=== PATIENT | female | born 1935 | race Caucasian/White ===

== ENCOUNTER 2019-06-13 10:46 | Outpatient (CLI) | payer MEDICARE, MEDICAID, SELFPAY ==
--- NOTE | 2019-06-13 11:13 | XR_ITS ---
WS: [id number] CHEST 2 VIEWS HISTORY: COUGH, DYSPNEA COMPARISON: 2 [id number] Lungs: Hyperinflated lungs with scattered granulomata. No pneumonia. Normal pulmonary vasculature. Cardiac size: Mildly enlarged cardiac silhouette. Mediastinum/Aorta: Mild atherosclerosis aorta. Bones: Osteopenia. XR/XR chest 2V* [id number] IMPRESSION: 1. No pneumonia. 2. Prior granulomatous disease and prior CABG. 3. Partially calcified aorta.
== END 2019-06-13 10:47 | disposition home or self-care (01) ==
LOC: RADWPI 10:54
PROVIDERS: Family Provider Internal Medicine; PCP Internal Medicine; Visit Provider Nurse Practitioner Family
DX: I70.0 Atherosclerosis of aorta (principal); R05 Cough; R06.00 Dyspnea, unspecified; Z95.1 Presence of aortocoronary bypass graft
CPT/HCPCS: 71046

== ENCOUNTER → 2019-08-31 17:46 | Outpatient (BNVA) | payer MEDICARE, MEDICAID, SELFPAY | PROVIDERS: Family Provider Internal Medicine; PCP Internal Medicine; Visit Provider Nurse Practitioner | DX: R50.9 Fever, unspecified (principal) | CPT/HCPCS: 87400; 87635 ==

== ENCOUNTER → 2019-09-07 16:26 | Outpatient (BNVA) | payer MEDICARE, MEDICAID, SELFPAY | PROVIDERS: Family Provider Internal Medicine; PCP Internal Medicine; Visit Provider Nurse Practitioner | DX: R50.9 Fever, unspecified (principal); J43.9 Emphysema, unspecified | CPT/HCPCS: 71046; 80053; 81003; 85025 ==

== ENCOUNTER → 2019-09-12 10:28 | Outpatient (BNVA) | payer MEDICARE, MEDICAID, SELFPAY | PROVIDERS: Family Provider Internal Medicine; PCP Internal Medicine; Visit Provider Nurse Practitioner | DX: D72.829 Elevated white blood cell count, unspecified (principal); J06.9 Acute upper respiratory infection, unspecified | CPT/HCPCS: 81000; 85025 ==

== ENCOUNTER → 2019-09-28 10:54 | Outpatient (BNVA) | payer MEDICARE, MEDICAID, SELFPAY | PROVIDERS: Family Provider Internal Medicine; PCP Internal Medicine; Visit Provider Nurse Practitioner | DX: I10 Essential (primary) hypertension (principal); E03.9 Hypothyroidism, unspecified; D72.829 Elevated white blood cell count, unspecified; J43.9 Emphysema, unspecified; J30.1 Allergic rhinitis due to pollen; N39.46 Mixed incontinence; E78.2 Mixed hyperlipidemia; K21.9 Gastro-esophageal reflux disease without esophagitis | CPT/HCPCS: 80053; 81000; 82607; 84443; 85025 ==

== ENCOUNTER → 2019-10-25 08:00 | Outpatient (BNVA) | payer MEDICARE, MEDICAID, SELFPAY | PROVIDERS: Family Provider Internal Medicine; PCP Nurse Practitioner; Visit Provider Internal Medicine Cardiovascular Disease | DX: E78.2 Mixed hyperlipidemia (principal) | CPT/HCPCS: 80061 ==

== ENCOUNTER → 2019-11-01 10:55 | Outpatient (BNVA) | payer MEDICARE, MEDICAID, SELFPAY | PROVIDERS: Family Provider Internal Medicine; PCP Nurse Practitioner; Visit Provider Nurse Practitioner | DX: M54.2 Cervicalgia (principal); E53.8 Deficiency of other specified B group vitamins; M47.812 Spondylosis without myelopathy or radiculopathy, cervical region; M50.321 Other cervical disc degeneration at C4-C5 level; M50.31 Other cervical disc degeneration, high cervical region; M50.322 Other cervical disc degeneration at C5-C6 level; M50.323 Other cervical disc degeneration at C6-C7 level | CPT/HCPCS: 72040 ==

== ENCOUNTER 2019-11-22 09:27 | Outpatient (CLI) | payer MEDICARE, MEDICAID, SELFPAY ==
--- NOTE | 2019-11-22 10:15 | USCV_ITS ---
Venita Pittman Age: 83 Gender: F : 1935 Exam Date: 11/22/2019 09:57 Ordering Phys: Lopez Simmons MD ([email or web address]) Technologist: Lina Green [place] [facility] [place]: [place] Risk Factors: Previous Vascular Surgery: Right Brachial BP: / Left Brachial BP: / Right Left Velocity (cm/s) Spectral Plaque Velocity (cm/s) Spectral Plaque Syst/Diast Broadening Syst/Diast Broadening 92.60/ 11.00 Prox CCA 64.30 / 7.30 76.10/ 14.30 Mid CCA 59.90 / 10.20 59.50/ 11.00 Distal CCA 51.90 / 6.70 135.60/18.70 Prox ICA 49.30 / 13.90 119.10/13.20 Mid ICA 77.20 / 15.80 94.80/ 18.70 Distal ICA 60.40 / 18.60 138.90 ECA 99.20 1.78 ICA/CCA 1.29 Not Vertebral Antegrade Visualized / cm/s 40.90/ 10.20 cm/s Bi Subclavian Bi 65.70 95.70 FINDINGS Moderate heterogeneous plaques are noted of the right bifurcation and proximal internal carotid artery. Minimal plaques are noted of the left bifurcation and internal carotid artery. Intimal thickening in the common carotid arteries bilaterally. Right vertebral artery was not visualized. Antegrade flow was noted in the left vertebral artery. Normal Doppler flow velocities in the external carotid and subclavian arteries CONCLUSIONS Moderate heterogeneous plaques are noted at the right bifurcation and proximal internal carotid arterywith velocity elevation consistent with 50-79% stenosis. Minimal plaques are noted at the left bifurcation and internal carotid artery. Compared to the study from 11/08/2018, there may not be a significant change Dr Lopez Simmons MD [facility] (Electronically Signed) Final Date: 23 November 2019 09:16 S
== END 2019-11-22 09:28 | disposition home or self-care (01) ==
LOC: RAD 09:27
PROVIDERS: PCP Nurse Practitioner; Visit Provider Internal Medicine Cardiovascular Disease
DX: I65.21 Occlusion and stenosis of right carotid artery (principal)
CPT/HCPCS: 93880

== ENCOUNTER → 2019-12-21 12:02 | Outpatient (BNVA) | payer MEDICARE, MEDICAID, SELFPAY | PROVIDERS: PCP Nurse Practitioner; Visit Provider Nurse Practitioner | DX: E53.8 Deficiency of other specified B group vitamins (principal); G47.00 Insomnia, unspecified; M50.30 Other cervical disc degeneration, unspecified cervical region | CPT/HCPCS: 80053; 82607 ==

== ENCOUNTER 2020-01-03 06:00 | Outpatient (RCR) | payer MEDICARE, MEDICAID, SELFPAY | END 2020-01-22 23:59 | disposition home or self-care (01) | LOC: APT 06:00 | PROVIDERS: PCP Nurse Practitioner; Referring Provider Nurse Practitioner; Visit Provider Nurse Practitioner | DX: M50.30 Other cervical disc degeneration, unspecified cervical region (principal) | CPT/HCPCS: 97110; 97163 ==

== ENCOUNTER 2020-01-23 06:00 | Outpatient (RCR) | payer MEDICARE, MEDICAID, SELFPAY | END 2020-02-21 23:59 | disposition home or self-care (01) | LOC: APT 06:00 | PROVIDERS: PCP Nurse Practitioner; Referring Provider Nurse Practitioner; Visit Provider Nurse Practitioner | DX: M50.30 Other cervical disc degeneration, unspecified cervical region (principal) | CPT/HCPCS: 97110; 97140; 97164 ==

== ENCOUNTER 2020-02-22 06:00 | Outpatient (RCR) | payer MEDICARE, MEDICAID, SELFPAY | END 2020-03-23 23:59 | disposition home or self-care (01) | LOC: APT 06:00 | PROVIDERS: PCP Nurse Practitioner; Referring Provider Nurse Practitioner; Visit Provider Nurse Practitioner | DX: M50.30 Other cervical disc degeneration, unspecified cervical region (principal) | CPT/HCPCS: 97110; 97140; 97530 ==

== ENCOUNTER → 2020-04-02 11:09 | Outpatient (BNVA) | payer MEDICARE, MEDICAID, SELFPAY | PROVIDERS: PCP Nurse Practitioner; Visit Provider Nurse Practitioner | DX: E53.8 Deficiency of other specified B group vitamins (principal); E03.9 Hypothyroidism, unspecified; E78.2 Mixed hyperlipidemia | CPT/HCPCS: 80053; 80061; 82607; 84443; 85025 ==

== ENCOUNTER → 2020-09-24 09:19 | Outpatient (BNVA) | payer MEDICARE, MEDICAID, SELFPAY | PROVIDERS: PCP Nurse Practitioner; Visit Provider Nurse Practitioner | DX: E53.8 Deficiency of other specified B group vitamins (principal); E03.9 Hypothyroidism, unspecified; I10 Essential (primary) hypertension; E78.2 Mixed hyperlipidemia | CPT/HCPCS: 80053; 80061; 82607; 84443; 85025 ==

== ENCOUNTER → 2020-09-26 11:32 | Outpatient (BNVA) | payer MEDICARE, MEDICAID, SELFPAY | PROVIDERS: PCP Nurse Practitioner; Visit Provider Nurse Practitioner | DX: J43.9 Emphysema, unspecified (principal); I10 Essential (primary) hypertension; E03.9 Hypothyroidism, unspecified; E53.8 Deficiency of other specified B group vitamins; K21.9 Gastro-esophageal reflux disease without esophagitis; M50.30 Other cervical disc degeneration, unspecified cervical region; J30.1 Allergic rhinitis due to pollen; N39.46 Mixed incontinence; E78.2 Mixed hyperlipidemia; E55.9 Vitamin D deficiency, unspecified; R73.9 Hyperglycemia, unspecified | CPT/HCPCS: 82306; 83036 ==

== ENCOUNTER → 2020-10-02 14:41 | Outpatient (BNVA) | payer MEDICARE, MEDICAID, SELFPAY | PROVIDERS: PCP Nurse Practitioner; Visit Provider Internal Medicine Cardiovascular Disease | DX: I65.23 Occlusion and stenosis of bilateral carotid arteries (principal); E78.2 Mixed hyperlipidemia; R07.9 Chest pain, unspecified; I25.118 Atherosclerotic heart disease of native coronary artery with other forms of angina pectoris; R06.02 Shortness of breath; I77.9 Disorder of arteries and arterioles, unspecified | CPT/HCPCS: 80048; 83880 ==

== ENCOUNTER 2020-10-08 14:24 | Outpatient (CLI) | payer MEDICARE, MEDICAID, SELFPAY ==
--- NOTE | 2020-10-08 14:31 | XRR_ITS ---
PROCEDURE INFORMATION: Exam: XR Chest Exam date and time: 10/08/2020 2:31 PM Age: 84 years old Clinical indication: Condition or disease; Lung condition and disease; Emphysema; Type not specified; Cough; Prior surgery; Surgery type: Bypass x 2; Additional info: J43.9 - emphysema, unspecified TECHNIQUE: Imaging protocol: XR of the chest. Views: Frontal and lateral upright, 2 views. COMPARISON: CR XR chest 2V* [id number] 09/07/2019 4:26 PM FINDINGS: Tubes, catheters and devices: The patient is status post median sternotomy with intact sternal cerclage wires. Lungs: Stable left lateral basilar infiltrate. Stable medial right basilar pulmonary subsegmental/partial atelectasis. The pulmonary vasculature is normal. Pleural space: No definite pleural effusion. No pneumothorax. Heart/Mediastinum: The heart is normal in size and contour. Mediastinum: Stable. Vasculature: Moderate aortic arch atherosclerotic calcification without ectasia. Bones/joints: Stable. XR/XR chest 2V* [id number] IMPRESSION: 1. Stable left lateral basilar infiltrate. Pneumonitis is difficult to exclude. Clinical correlation is recommended. 2. Stable medial right basilar pulmonary subsegmental/partial atelectasis.
== END 2020-10-08 14:25 | disposition home or self-care (01) ==
PROVIDERS: PCP Nurse Practitioner; Visit Provider Nurse Practitioner
DX: J43.9 Emphysema, unspecified (principal); R91.8 Other nonspecific abnormal finding of lung field; J98.11 Atelectasis
CPT/HCPCS: 71046; 85025

== ENCOUNTER → 2020-10-28 12:06 | Outpatient (BNVA) | payer MEDICARE, MEDICAID, SELFPAY | PROVIDERS: PCP Nurse Practitioner; Visit Provider Nurse Practitioner | DX: I25.118 Atherosclerotic heart disease of native coronary artery with other forms of angina pectoris (principal); I10 Essential (primary) hypertension; J43.9 Emphysema, unspecified | CPT/HCPCS: 85025 ==

== ENCOUNTER 2020-11-05 09:42 | Outpatient (CLI) | payer MEDICARE, MEDICAID, SELFPAY ==
[2020-11-05 10:15] LABS: Basophils # 0.4 10^3/uL (0.0-0.1); Basophils % 3.5 %; Eosinophils # 0.6 10^3/uL (0.0-0.8); Eosinophils % 5.7 %; Hematocrit 46.7 % (37.0-47.0); Hemoglobin 14.9 g/dL (11.5-15.3); Lymphocytes # 1.9 10^3/uL (0.8-4.8); Lymphocytes % 17.2 %; Mean Corpuscular HGB Conc 31.9 g/dL (30.0-36.0); Mean Corpuscular Hemoglobin 30.1 pg (28.0-34.0); Mean Corpuscular Volume 94.3 fL (81-99); Monocytes % 9.2 %; Neutrophils # 7.18 10^3/uL (1.8-7.7); Neutrophils % 63.8 %; Nucleated Red Blood Cells % 0 %; Platelet Count 264 10^3/cmm (130-400); Red Blood Count 4.95 10^6/uL (4.1-5.3); Red Cell Distribution Width 13.1 % (12.1-15.1); White Blood Count 11.3 10^3/uL (4.0-10.0)
--- NOTE | 2020-11-07 09:02 | ONC CON_ITS ---
Dr. Killian New Patient Note Patient: Venita Pittman Unit #: [id number]: 1935 Dicatated By: Judah Killian M.D.Date of Visit: Nov 05, 2020 Onc MED New Patient/Consult Referring Physician: Magalie Castillo History of Present Illness: Ms. Ventia Pittman, is a 84-year-old female with a history of increased white blood cells since April 2020, as per patient her white blood count never got below 12,000. As per patient she has history of walking pneumonia about a year ago at that time she was treated with antibiotics and steroids for 10 days and responded well, she has history of chronic arthritis which is being treated with Mobic, patient also has history of COPD asthma for which she takes Breo, which is a combination of fluticasone and Vilanterol inhaler, Denies [id number] steroid-containing medication or regular use of steroids or herbs Patient denies smoking or secondhand smoking denies any alcohol use. Patient denies any night sweats, denies any weight loss, denies any abdominal fullness, denies any peripheral lymphadenopathy Past Medical History: Ms. Pittman's medical history consists of atherosclerosis of coronary artery, atherosclerotic femoro-popliteal artery disease, chronic obstructive pulmonary disease, coronary artery disease, emphysema, gastroesophageal reflux disease, heart murmur, hyperlipidemia, hypertension, and hypothyroidism. Past Surgical History: Ms. Pittman's surgical/procedural history consists of biliary stent, coronary artery bypass, Left rotator cuff December 1998, Right rotator cuff january 2007, covid vaccine #2 moderna in 2020, covid vaccine #1 moderna in 2020, and colonoscopy in 2012. Medications: All Day Allergy 1 Tablet (of 10 mg) Oral daily, amLODIPine-Olmesartan 1 Tablet (of 5-20 mg) Oral daily, Aspirin 81 1 Tablet (of 81 mg) Tablet, enteric coated Oral daily, B-12 1 Tablet (of 1000 mcg) Oral daily, Breo Ellipta Aerosol Powder, Breath Activated Inhalation, [facility] Fish Oil 1 Capsule (of 1000 mg) Oral daily, [facility] Vitamin E 1 Capsule (of 400 Units) Oral daily, Esomeprazole Magnesium 1 Capsule (of 40 mg) Capsule Delayed Release Oral daily, Levothyroxine Sodium 1 Tablet (of 100 mcg) Oral daily, Magnesium 2 Tablet (of 250 mg) Oral daily, Meloxicam 1 Tablet (of 7.5 mg) Oral daily, Metoprolol Tartrate 1 Tablet (of 100 mg) Oral daily, Montelukast Sodium 1 Tablet (of 10 mg) Oral daily, Oxybutynin Chloride ER 1 Tablet (of 10 mg) Tablet SR 24 HR Oral daily, Potassium Chloride ER 2 Tablet (of 10 meq) Tablet, controlled release Oral daily, PreserVision AREDS 1 Capsule Oral daily, Rosuvastatin Calcium 1 Tablet (of 10 mg) Oral daily Allergies: No Known Allergies. Social History: Ms. Pittman is . Ms. Pittman no longer smokes. She is a former drinker. Family History: Ms. Pittman's mother at age 90: coronary artery disease, and stroke, and type II diabetes. Ms. Pittman's father at age 84. Ms. Pittman has 1 brother who is : cancer. She has 1 sister who is alive. Review Of Symptoms: Review of Systems is not available for this patient. Vital Signs: Most recent vitals are not available for this patient. Performance Status: 0 - Fully active, able to carry on all predisease activities without restrictions. (ECOG) Physical Examination: ENMT - No mouth sores, no thrush, no jaundice no lymphadenopathy, Respiratory - Lungs are clear to auscultation, Cardiovascular - Regular rate and rhythm of heart, Abdomen - Soft, bowel sounds present, Extremities - No visible edema. Lab/Imaging: Most recent lab results are not available for this patient. Impression: Isolated mild leukocytosis, etiology unclear could be due to chronic steroid-containing inhalers use, stress-related, considering her age underlying myeloproliferative disorder cannot be ruled out but less likely, or due to chronic inflammatory process like arthritis, History of arthritis, COPD, history of walking pneumonia Hypothyroidism Plan: Discussed with patient regarding her labs white blood count 11.3, normal being 4-10,000, hemoglobin 14.9 hematocrit 46.7 platelets 264,000 with normal differential Clinically, patient doing well with no signs symptoms history of acute or chronic infection, follow-up labs shows improvement in her mild isolated Leukocytosis ,, at this point ,we will monitor and she will return to clinic in 1 month with CBC with differential, if there is a worsening of mild isolated Leukocytosis, will consider holding off steroid containing inhaler, if there is no improvement, will consider whole blood flow cytometry to rule out myeloproliferative disorder Signed By: Judah Killian M.D. <<Signature on File>>
== END 2020-11-05 09:43 | disposition home or self-care (01) ==
PROVIDERS: PCP Nurse Practitioner; Visit Provider Internal Medicine Hematology & Oncology
DX: D72.829 Elevated white blood cell count, unspecified (principal); J44.9 Chronic obstructive pulmonary disease, unspecified; E03.8 Other specified hypothyroidism; M19.90 Unspecified osteoarthritis, unspecified site
CPT/HCPCS: 85025; 99204

== ENCOUNTER 2020-11-05 14:31 | Outpatient (CLI) | payer MEDICARE, MEDICAID, SELFPAY ==
--- NOTE | 2020-11-05 15:00 | USCV_ITS ---
Venita Pittman Age: 84 Gender: F : 1935 Exam Date: 11/05/2020 14:58 Ordering Phys: Lopez Simmons MD ([email or web address]) Technologist: CHANDRA Exam Location: [facility] [place] Indication: ART DISORDER Risk Factors: Previous Vascular Surgery: Right Brachial BP: / Left Brachial BP: / Right Left Velocity (cm/s) Spectral Plaque Velocity (cm/s) Spectral Plaque Syst/Diast Broadening Syst/Diast Broadening 106.90/9.90 Prox CCA 110.30/ 10.40 73.00/ 8.50 Mid CCA 71.80 / 9.70 80.80/ 10.10 Distal CCA 66.90 / 8.90 118.50/13.90 Prox ICA 81.20 / 11.10 150.10/14.90 Mid ICA 87.30 / 15.70 89.50/ 15.60 Distal ICA 98.90 / 26.40 132.80 ECA 146.40 1.40 ICA/CCA 0.90 Antegrade Vertebral Antegrade 30.10/ 7.30 cm/s 47.90/ 9.40 cm/s Bi Subclavian Tri 258.0 133.3 0 0 FINDINGS Moderate heterogeneous plaques at the right bifurcation and internal carotid artery. Mild to moderate heterogeneous plaques at the left bifurcation and internal carotid artery Antegrade flow in the vertebral arteries bilaterally. Elevated Doppler velocities in the right subclavian artery CONCLUSIONS Moderate heterogeneous plaques at the right bifurcation and internal carotid artery with Doppler features consistent with 50 to 69% stenosis. Mild to moderate heterogeneous plaques at the left bifurcation and internal carotid artery with the Doppler features consistent with less than 50% stenosis Elevated Doppler velocity in the right subclavian artery, suggestive of greater than 60% stenosis Compared to the study from 11/22/2019, the elevated velocity in the right subclavian artery suggesting stenosis, appears to be new Dr Lopez Simmons MD [facility] (Electronically Signed) Final Date: 05 November 2020 19:12 S
== END 2020-11-05 14:32 | disposition home or self-care (01) ==
LOC: RAD 14:35
PROVIDERS: PCP Nurse Practitioner; Visit Provider Internal Medicine Cardiovascular Disease
DX: I77.9 Disorder of arteries and arterioles, unspecified (principal); I65.23 Occlusion and stenosis of bilateral carotid arteries
CPT/HCPCS: 93880

== ENCOUNTER → 2020-11-21 10:17 | Outpatient (BNVA) | payer MEDICARE, MEDICAID, SELFPAY | PROVIDERS: PCP Nurse Practitioner; Visit Provider Nurse Practitioner | DX: E03.9 Hypothyroidism, unspecified (principal); E53.8 Deficiency of other specified B group vitamins; I10 Essential (primary) hypertension | CPT/HCPCS: 80048; 82607; 84443 ==

== ENCOUNTER 2020-12-18 11:46 | Outpatient (CLI) | payer MEDICARE, MEDICAID, SELFPAY ==
[2020-12-18 12:26] LABS: Basophils # 0.5 10^3/uL (0.0-0.1); Basophils % 3.7 %; Eosinophils # 0.5 10^3/uL (0.0-0.8); Eosinophils % 3.7 %; Hematocrit 43.2 % (37.0-47.0); Lymphocytes # 2.8 10^3/uL (0.8-4.8); Lymphocytes % 21.6 %; Mean Corpuscular HGB Conc 32.4 g/dL (30.0-36.0); Mean Corpuscular Hemoglobin 30.4 pg (28.0-34.0); Mean Corpuscular Volume 93.7 fL (81-99); Monocytes # 1.4 10^3/uL (0.2-0.9); Monocytes % 10.5 %; Neutrophils # 7.88 10^3/uL (1.8-7.7); Nucleated Red Blood Cells % 0 %; Platelet Count 297 10^3/cmm (130-400); Red Blood Count 4.61 10^6/uL (4.1-5.3); Red Cell Distribution Width 12.8 % (12.1-15.1); White Blood Count 13.1 10^3/uL (4.0-10.0)
== END 2020-12-18 11:47 | disposition home or self-care (01) ==
LOC: ONCMED 11:52
PROVIDERS: PCP Nurse Practitioner; Visit Provider Internal Medicine Hematology & Oncology
DX: D72.829 Elevated white blood cell count, unspecified (principal)
CPT/HCPCS: 36415; 85025

== ENCOUNTER 2020-12-19 06:16 | Outpatient (CLI) | payer MEDICARE, MEDICAID, SELFPAY ==
--- NOTE | 2020-12-19 13:49 | ONC FU_ITS ---
Dr. Killian follow up note Patient: Venita Pittman Unit #: [id number]: 1935 Dicatated By: Judah Killian M.D.Date of Visit:Dec 19, 2020 Onc Med Follow-up/Prog Note History of Present Illness: Ms. Venita Pittman, is a 85-year-old female with a history of increased white blood cells since April 2020, as per patient her white blood count never got below 12,000. As per patient she has history of walking pneumonia about a year ago at that time she was treated with antibiotics and steroids for 10 days and responded well, she has history of chronic arthritis which is being treated with Mobic, patient also has history of COPD asthma for which she takes Breo, which is a combination of fluticasone and Vilanterol inhaler, Denies [id number] steroid-containing medication or regular use of steroids or herbs Patient denies smoking or secondhand smoking denies any alcohol use. Patient denies any night sweats, denies any weight loss, denies any abdominal fullness, denies any peripheral lymphadenopathy Came for follow-up, denies any specific complaints, no fever chills, no nausea or vomiting, no diarrhea constipation, no abdominal fullness, no peripheral lymphadenopathy, no dysuria or hematuria, no sinus problem Medications: All Day Allergy 1 Tablet (of 10 mg) Oral daily, amLODIPine-Olmesartan 1 Tablet (of 5-20 mg) Oral daily, Aspirin 81 1 Tablet (of 81 mg) Tablet, enteric coated Oral daily, B-12 1 Tablet (of 1000 mcg) Oral daily, Breo Ellipta Aerosol Powder, Breath Activated Inhalation, [facility] Fish Oil 1 Capsule (of 1000 mg) Oral daily, [facility] Vitamin E 1 Capsule (of 400 Units) Oral daily, Esomeprazole Magnesium 1 Capsule (of 40 mg) Capsule Delayed Release Oral daily, Levothyroxine Sodium 1 Tablet (of 100 mcg) Oral daily, Magnesium 2 Tablet (of 250 mg) Oral daily, Meloxicam 1 Tablet (of 7.5 mg) Oral daily, Metoprolol Tartrate 1 Tablet (of 50 mg) Oral b.i.d., Montelukast Sodium 1 Tablet (of 10 mg) Oral daily, Oxybutynin Chloride ER 1 Tablet (of 10 mg) Tablet SR 24 HR Oral daily, Potassium Chloride ER 2 Tablet (of 10 meq) Tablet, controlled release Oral daily, PreserVision AREDS 1 Capsule Oral daily, Rosuvastatin Calcium 1 Tablet (of 10 mg) Oral daily Allergies: No Known Allergies. Review of Systems: Review of Systems is not available for this patient. Vital Signs: Performed on Dec 19, 2020 12:43 Weight - 140.2 lbs (HIGH) BSA - 0.00 sq.m BMI - 0.00 Temperature - 98.4 F Pulse - 72 /min Respiration - 18 /min BP - 100/60 mm(hg) O2 Sat - 96 % Pain - 3 Fatigue - 7 Performance Status: 0 - Fully active, able to carry on all predisease activities without restrictions. (ECOG) Physical Examination: ENMT - Sinuses are nontender. No oral exudateNo mouth sores, no thrush, no jaundice, no peripheral lymphadenopathys, ulcers, masses, thrush or mucositis. Oropharynx clear. Tongue normal, Respiratory - Lungs are clear to auscultation, Cardiovascular - Regular rate and rhythm of heart, Abdomen - Soft, bowel sounds present, Extremities - No visible edema. Lab/Imaging: Most recent lab results are not available for this patient. Impression: Isolated mild leukocytosis, etiology unclear could be due to chronic steroid-containing inhalers use, stress-related, considering her age underlying myeloproliferative disorder cannot be ruled out but less likely, or due to chronic inflammatory process like arthritis, History of arthritis, COPD, history of walking pneumonia Hypothyroidism Plan: Discussed with patient regarding her labs white blood count 13.1 compared to 11.3 previously, hemoglobin 14 medical 43.2 platelets 297,000 differential shows mildly elevated monocytes and basophils and neutrophils Clinically, patient doing well with no new signs symptom history of infection her follow-up CBC shows progressive mild isolated leukocytosis and differential shows mildly elevated monocytes and basophils, there is a concern but myeloproliferative disorder like CML or CMML, at this point, will consider whole blood flow cytometry, and also review her peripheral blood smear and she will return to clinic in 1 month with CBC and flow cytometry report for further discussion Signed By: Judah Killian M.D. <<Signature on File>>
[2021-01-06 10:28] LABS: Miscellaneous Test See Scanned Lab Rpt
== END 2020-12-19 06:17 | disposition home or self-care (01) ==
PROVIDERS: PCP Nurse Practitioner; Visit Provider Internal Medicine Hematology & Oncology
DX: D72.820 Lymphocytosis (symptomatic) (principal); M19.90 Unspecified osteoarthritis, unspecified site; J44.9 Chronic obstructive pulmonary disease, unspecified; J18.9 Pneumonia, unspecified organism; E03.9 Hypothyroidism, unspecified; Z79.899 Other long term (current) drug therapy
CPT/HCPCS: 36415; 88184; 88185; 99214

== ENCOUNTER 2020-12-20 10:01 | Outpatient (CLI) | payer MEDICARE, MEDICAID, SELFPAY ==
--- NOTE | 2020-12-20 10:15 | USCV_ITS ---
Venita Pittman Age: 85 Gender: F : 1935 Exam Date: 12/20/2020 10:21 Ordering Phys: Jeremy Latham Technologist: Roz Correa [place] [facility] [place]: ASHD with increase in SOB BP: 100 / 65 HR: 68 Rhythm: Sinus Technical Quality: Adequate MEASUREMENTS (Male / Female) Normal Values 2D ECHO LV Diastolic Diameter PLAX 3.9 cm 4.2 - 5.9 / 3.9 - 5.3 cm LV Systolic Diameter PLAX 1.8 cm IVS Diastolic Thickness 1.2 cm 0.6 - 1.0 / 0.6 - 0.9 cm IVS Systolic Thickness 1.6 cm LVPW Diastolic Thickness 0.8 cm 0.6 - 1.0 / 0.6 - 0.9 cm LVPW Systolic Thickness 1.7 cm LVOT Diameter 2.1 cm LV Ejection Fraction 2D Teich 85.1 % LV Ejection Fraction MOD 2C 52.7 % LV Ejection Fraction 2C AL 52.8 % LA Diameter 3.0 cm LA Width 2.7 cm LA Height 5.1 cm RA Width 2.9 cm RA Height 3.9 cm Aorta at Sinotubular Diameter 2.3 cm DOPPLER AV Peak Velocity 155.0 cm/s LVOT Peak Velocity 100.0 cm/s AV Area Cont Eq vti 2.8 cm squared AV Area Cont Eq pk 2.2 cm squared MV Peak Velocity 123.0 cm/s MV Area PHT 3.1 cm squared Mitral E to A Ratio 0.8 MV E' Velocity 45.0 cm/s Mitral E to MV E' Ratio 12.7 Mitral E to LV E' Lateral Ratio 11.3 Mitral E to LV E' Septal Ratio 14.5 TR Peak Velocity 276.3 cm/s TR Peak Gradient 30.5 mmHg TR Mean Velocity 200.7 cm/s TR Mean Gradient 18.0 mmHg TR Velocity Time Integral 90.3 cm Right Atrial Pressure 3.0 mmHg Pulmonary Artery Systolic Pressu 33.5 mmHg PV Peak Velocity 68.0 cm/s RV Acceleration Time 0.1 s RV Ejection Time 0.3 s RV AcT/ET 0.3 FINDINGS Left Ventricle Normal left ventricular size and systolic function, EF 64 %. Mild left ventricular hypertrophy. Grade I/IV diastolic dysfunction (abnormal relaxation filling pattern), normal to mildly elevated filling pressures. Right Ventricle The right ventricle is normal in size and function. Right Atrium The right atrium is normal in size. Left Atrium The left atrium is normal in size. Mitral Valve Trace mitral valve regurgitation. Aortic Valve Thickened aortic valve. Tricuspid Valve Moderate tricuspid valve regurgitation. Estimated pulmonary artery peak systolic pressure of 34 mmHg Pulmonic Valve Pulmonic valve not well visualized. Pericardium Normal pericardium without effusion. Aorta Normal ascending aorta dimension. CONCLUSIONS Normal left ventricular size and systolic function, EF 64 %. Mild left ventricular hypertrophy. Grade I/IV diastolic dysfunction (abnormal relaxation filling pattern), normal to mildly elevated filling pressures. No gross wall motion abnormalities Thickened aortic valve. Trace mitral valve regurgitation. Moderate tricuspid valve regurgitation. Estimated pulmonary artery peak systolic pressure of 34 mmHg. There is no pericardial effusion. There are no intracardiac masses. Compared to the study from 12/08/2016, there may not be a significant change Dr Lopez Simmons MD [facility] (Electronically Signed) Final Date: 20 December 2020 16:03 S
== END 2020-12-20 10:02 | disposition home or self-care (01) ==
PROVIDERS: PCP Nurse Practitioner; Visit Provider Nurse Practitioner
DX: I25.118 Atherosclerotic heart disease of native coronary artery with other forms of angina pectoris (principal); I08.3 Combined rheumatic disorders of mitral, aortic and tricuspid valves
CPT/HCPCS: 93306

== ENCOUNTER → 2021-01-20 15:20 | Outpatient (BNVA) | payer MEDICARE, MEDICAID, SELFPAY | PROVIDERS: PCP Nurse Practitioner; Visit Provider Internal Medicine Cardiovascular Disease | DX: I65.23 Occlusion and stenosis of bilateral carotid arteries (principal); E78.2 Mixed hyperlipidemia; R07.9 Chest pain, unspecified; I25.118 Atherosclerotic heart disease of native coronary artery with other forms of angina pectoris; R06.02 Shortness of breath; I77.9 Disorder of arteries and arterioles, unspecified; I50.33 Acute on chronic diastolic (congestive) heart failure | CPT/HCPCS: 80048; 83880 ==

== ENCOUNTER 2021-01-29 14:21 | Outpatient (CLI) | payer MEDICARE, MEDICAID, SELFPAY ==
[2021-01-29 15:24] LABS: Basophils # 0.5 10^3/uL (0.0-0.1); Eosinophils # 0.6 10^3/uL (0.0-0.8); Eosinophils % 4.4 %; Hematocrit 45.5 % (37.0-47.0); Hemoglobin 14.5 g/dL (11.5-15.3); Lymphocytes # 3.3 10^3/uL (0.8-4.8); Lymphocytes % 25.7 %; Mean Corpuscular HGB Conc 31.9 g/dL (30.0-36.0); Mean Corpuscular Hemoglobin 29.5 pg (28.0-34.0); Mean Corpuscular Volume 92.7 fl (81-99); Monocytes # 1.4 10^3/uL (0.2-0.9); Neutrophils # 7.05 10^3/uL (1.8-7.7); Neutrophils % 54.1 %; Nucleated Red Blood Cells % 0 %; Platelet Count 290 10^3/cmm (130-400); Red Blood Count 4.91 10^6/uL (4.1-5.3); Red Cell Distribution Width 12.8 % (12.1-15.1)
--- NOTE | 2021-01-29 16:45 | ONC FU_ITS ---
Dr. Killian follow up note Patient: Venita Pittman Unit #: [id number]: 1935 Dicatated By: Judah Killian M.D.Date of Visit:Jan 29, 2021 Onc Med Follow-up/Prog Note History of Present Illness: Ms. Venita Pittman, is a 85-year-old female with a history of increased white blood cells since April 2020, as per patient her white blood count never got below 12,000. As per patient she has history of walking pneumonia about a year ago at that time she was treated with antibiotics and steroids for 10 days and responded well, she has history of chronic arthritis which is being treated with Mobic, patient also has history of COPD asthma for which she takes Breo, which is a combination of fluticasone and Vilanterol inhaler, Denies [id number] steroid-containing medication or regular use of steroids or herbs Patient denies smoking or secondhand smoking denies any alcohol use. Patient denies any night sweats, denies any weight loss, denies any abdominal fullness, denies any peripheral lymphadenopathy Whole blood flow cytometry done on December 19, 2020 shows no aberrant myeloid or lymphoid population detected Came for follow-up, denies any specific complaints, except chronic sinusitis postnasal drip but no fever chills, no nausea or vomiting, no diarrhea or constipation, no dysuria or hematuria, no night sweats, no abdominal fullness, or peripheral lymphadenopathy. Medications: All Day Allergy 1 Tablet (of 10 mg) Oral daily, amLODIPine-Olmesartan 1 Tablet (of 5-20 mg) Oral daily, Aspirin 81 1 Tablet (of 81 mg) Tablet, enteric coated Oral daily, B-12 1 Tablet (of 1000 mcg) Oral daily, Breo Ellipta Aerosol Powder, Breath Activated Inhalation, [facility] Fish Oil 1 Capsule (of 1000 mg) Oral daily, [facility] Vitamin E 1 Capsule (of 400 Units) Oral daily, Esomeprazole Magnesium 1 Capsule (of 40 mg) Capsule Delayed Release Oral daily, Levothyroxine Sodium 1 Tablet (of 100 mcg) Oral daily, Magnesium 2 Tablet (of 250 mg) Oral daily, Meloxicam 1 Tablet (of 7.5 mg) Oral daily, Metoprolol Tartrate 1 Tablet (of 50 mg) Oral b.i.d., Montelukast Sodium 1 Tablet (of 10 mg) Oral daily, Oxybutynin Chloride ER 1 Tablet (of 10 mg) Tablet SR 24 HR Oral daily, Potassium Chloride ER 2 Tablet (of 10 meq) Tablet, controlled release Oral daily, PreserVision AREDS 1 Capsule Oral daily, Rosuvastatin Calcium 1 Tablet (of 10 mg) Oral daily Allergies: No Known Allergies. Review of Systems: Review of Systems is not available for this patient. Vital Signs: Performed on Jan 29, 2021 16:05 Weight - 137.4 lbs (LOW) BSA - 0.00 sq.m BMI - 0.00 Temperature - 98.2 F (LOW) Pulse - 82 /min Respiration - 18 /min BP - 119/68 mm(hg) O2 Sat - 93 % (LOW) Pain - 0 Fatigue - 8 Performance Status: 0 - Fully active, able to carry on all predisease activities without restrictions. (ECOG) Physical Examination: ENMT - No mouth sores, no thrush, no jaundice, no cervical lymphadenopathy, Respiratory - Lungs are clear to auscultation, Cardiovascular - Regular rate and rhythm of heart, Abdomen - Soft, bowel sounds present, Extremities - No visible edema. Lab/Imaging: Most recent lab results are not available for this patient. Impression: Isolated mild leukocytosis, etiology unclear could be due to chronic steroid-containing inhalers use, stress-related, considering her age underlying myeloproliferative disorder cannot be ruled out but less likely, or due to chronic inflammatory process like arthritis, Whole blood flow cytometry done on December 19, 2020 shows no aberrant myeloid or lymphoid population detected History of arthritis, COPD, history of walking pneumonia Hypothyroidism Plan: Discussed with patient regarding her labs white blood count 13 hemoglobin 14.5 marker 45.5 platelets 290,000 with a normal differential, Whole blood flow cytometry done on December 19, 2020 shows no aberrant myeloid or lymphoid population detected Clinically, patient doing well with no new signs symptom, but her follow-up labs shows persistent mild leukocytosis and whole blood flow cytometry showed no aberrant myeloid or lymphoid population detected, so her mild leukocytosis could be due to chronic inflammation like chronic sinusitis or postnasal drip or early myeloproliferative disorder,, as her remaining CBC shows normal hemoglobin and platelet count and normal differential so we would rather monitor her, she will return to clinic in 3 months with CBC if that shows progressive leukocytosis, then will consider further work-up which include molecular profiling for myeloproliferative disorder and possibly bone marrow evaluation. Signed By: Judah Killian M.D. <<Signature on File>>
== END 2021-01-29 14:22 | disposition home or self-care (01) ==
PROVIDERS: PCP Nurse Practitioner; Visit Provider Internal Medicine Hematology & Oncology
DX: D72.829 Elevated white blood cell count, unspecified (principal); M19.90 Unspecified osteoarthritis, unspecified site; J44.9 Chronic obstructive pulmonary disease, unspecified; Z79.82 Long term (current) use of aspirin; Z79.899 Other long term (current) drug therapy; Z79.890 Hormone replacement therapy
CPT/HCPCS: 36415; 85025; 99214

== ENCOUNTER → 2021-02-04 08:05 | Outpatient (BNVA) | payer MEDICARE, MEDICAID, SELFPAY | PROVIDERS: PCP Nurse Practitioner; Visit Provider Nurse Practitioner | DX: E03.9 Hypothyroidism, unspecified (principal); E78.2 Mixed hyperlipidemia; I10 Essential (primary) hypertension; R73.9 Hyperglycemia, unspecified | CPT/HCPCS: 80053; 83036; 84443; 85025 ==

== ENCOUNTER → 2021-02-05 08:22 | Outpatient (BNVA) | payer MEDICARE, MEDICAID, SELFPAY | PROVIDERS: PCP Nurse Practitioner; Visit Provider Nurse Practitioner | DX: R05 Cough (principal) | CPT/HCPCS: 71046; 87635 ==

== ENCOUNTER 2021-03-28 07:39 | Outpatient (CLI) | payer MEDICARE, MEDICAID, SELFPAY ==
[2021-03-28 07:57] VITALS: BMI 26.9
--- NOTE | 2021-03-28 07:59 | NMCV_ITS ---
NM viktoria perf SPECT r/s* [id number] Venita Pittman Age: 85 Gender: F : 1935 Exam Date: 03/28/2021 07:59 Ordering Phys: Lopez Simmons MD ([email or web address]) Technologist: ALESSIO Bay Exam [facility]: [facility] Indications: CHEST PAIN STRESS TEST [facility] IMAGE PROTOCOL Rest/Stress 1 Lexiscan Day Radiopharmaceutical Dose (mCi) Administration Site Administered by Rest: Tc-99m 10.5 IV ALESSIO Perkins Sestamibi Stress:Tc-99m 31.9 IV ALESSIO Perkins Sestamibi Rest: 28-Mar-2021 60 Discovery 630 Stress: 28-Mar-2021 30 Discovery 630 0.4mg Lexiscan. Supine position only as patient was unable to lay prone. SPECT RESULTS Technical Quality: Excellent Raw Data Analysis: Normal Image Corrections: No attenuation or motion correction applied Summed Stress Score: 0 Summed Rest Score: 6 Summed Difference Score: 0 PERFUSION FINDINGS Patchy areas of decreased tracer uptake were noted in the apical segments. No significant reversibility was noted. FUNCTIONAL RESULTS (calculated via Gated SPECT) Stress Image LV EF (%): 74 Stress EDV (mL):54 TID: 0.97 Stress ESV (mL):14 FUNCTIONAL FINDINGS: Segmental wall motion analysis revealing no gross wall motion normalities IMPRESSIONS 1. Myocardial perfusion imaging revealing patchy areas of persistent decreased tracer uptake in the apical regions, most likely represent attenuation artifacts. 2. Normal LV ejection fraction of 74%. 3. Segmental wall motion analysis revealing no gross wall motion abnormalities. 4. Normal LV volume No significant coronary ischemia, based on the above findings. No similar previous studies are available for comparison Dr Lopez Simmons MD [facility] (Electronically Signed) Final Date: 31 March 2021 08:04 S
--- NOTE | 2021-03-28 07:59 | ECG_ITS ---
[facility] Test Date: 2021-03-28 Pat Name: Venita Pittman Department: Room: Gender: Female Budget Manager: : 1935 Requested By: Lopez Simmons Order Number: [id number] Nathaniel MD: Lopez Simmons M.D. Interpretive Statements NAME OF STUDY: LEXISCAN SESTAMIBI STRESS TEST INDICATION: Chest Pain, PROCEDURE: At the baseline, the EKG revealed normal sinus rhythm with a possible left atrial enlargement. Poor R wave progression. Diffuse nonspecific ST-T changes. The baseline blood pressure was 147/81 mm Hg with a heart rate of77 beats/min. Lexiscan was infused over a period of 20 seconds. A total of 0.4 milligrams of Lexiscan was infused. The stress phase was continued for a total of 5 minutes. Heart rate at the end of the stress phase was 95 with a blood pressure 143/64. The EKG at the peak infusion revealed a rate related left bundle branch block pattern. Sestamibi was injected 20 seconds after the Lexiscan infusion. Blood pressure at the end of the recovery phase was 144/65 with a heart rate of 96 per minute. CONCLUSION: 1. Rate related bundle branch block, during the Lexiscan infusion 2. No LexiScan induced chest pain or cardiac arrhythmia 3. Normal blood pressure and heart rate response 4. Sestamibi/sestamibi perfusion scan pending; see separate report. Electronically Signed On 04-03-2021 10:11:53 ASSISTANT SALES CENTER MANAGER by Lopez Simmons M.D. [id number]
[2021-03-28] MEDS: regadenoson 0.4 Mg/5 ml Syringe IVP (09:45)
[2021-03-28 09:49] VITALS: BP 144/65; PULSE 94
== END 2021-03-28 07:40 | disposition home or self-care (01) ==
LOC: CDL 07:41
PROVIDERS: PCP Nurse Practitioner; Visit Provider Internal Medicine Cardiovascular Disease
DX: R07.9 Chest pain, unspecified (principal)
CPT/HCPCS: 78452; 93017; A9500; J2785

== ENCOUNTER → 2021-05-05 08:29 | Outpatient (BNVA) | payer MEDICARE, MEDICAID, SELFPAY | PROVIDERS: PCP Nurse Practitioner; Visit Provider Nurse Practitioner | DX: E78.2 Mixed hyperlipidemia (principal); I10 Essential (primary) hypertension; E03.9 Hypothyroidism, unspecified | CPT/HCPCS: 80053; 80061; 84443; 85025 ==

== ENCOUNTER → 2021-08-19 10:21 | Outpatient (BNVA) | payer MEDICARE, MEDICAID, SELFPAY | PROVIDERS: PCP Nurse Practitioner; Visit Provider Nurse Practitioner | DX: I10 Essential (primary) hypertension (principal); J43.9 Emphysema, unspecified; N95.2 Postmenopausal atrophic vaginitis; E03.9 Hypothyroidism, unspecified; Z79.899 Other long term (current) drug therapy | CPT/HCPCS: 80053; 80061; 81000; 83036; 84443; 85025 ==

== ENCOUNTER → 2021-09-18 09:51 | Outpatient (BNVA) | payer MEDICARE, MEDICAID, SELFPAY | PROVIDERS: PCP Nurse Practitioner; Visit Provider Nurse Practitioner Family | DX: I25.118 Atherosclerotic heart disease of native coronary artery with other forms of angina pectoris (principal); I10 Essential (primary) hypertension; I65.23 Occlusion and stenosis of bilateral carotid arteries; Z87.891 Personal history of nicotine dependence | CPT/HCPCS: 99214 ==

== ENCOUNTER → 2021-10-02 12:00 | Outpatient (BNVA) | payer MEDICARE, MEDICAID, SELFPAY | PROVIDERS: PCP Nurse Practitioner; Visit Provider Nurse Practitioner | DX: J43.9 Emphysema, unspecified (principal); I10 Essential (primary) hypertension; K21.9 Gastro-esophageal reflux disease without esophagitis; E03.9 Hypothyroidism, unspecified; M50.30 Other cervical disc degeneration, unspecified cervical region; J30.1 Allergic rhinitis due to pollen; N39.46 Mixed incontinence; E78.2 Mixed hyperlipidemia | CPT/HCPCS: 71046 ==

== ENCOUNTER → 2021-11-25 11:44 | Outpatient (BNVA) | payer MEDICARE, MEDICAID, SELFPAY | PROVIDERS: PCP Nurse Practitioner; Visit Provider Nurse Practitioner | DX: E03.9 Hypothyroidism, unspecified (principal); R73.9 Hyperglycemia, unspecified | CPT/HCPCS: 80053; 83036; 84443; 85025 ==

== ENCOUNTER 2022-01-22 12:18 | Outpatient (CLI) | payer MEDICARE, MEDICAID, SELFPAY ==
--- NOTE | 2022-01-22 12:45 | USCV_ITS ---
Venita Pittman Age: 86 Gender: F : 1935 Exam Date: 01/22/2022 12:56 Ordering Phys: Christie Valerio Technologist: CHANDRA [place] [facility] [place] Indication: EVAL FOR STENOSIS Risk Factors: Previous Vascular Surgery: Right Brachial BP: / Left Brachial BP: / Right Left Velocity (cm/s) Spectral Plaque Velocity (cm/s) Spectral Plaque Syst/Diast Broadening Syst/Diast Broadening 98.10/ 13.20 Prox CCA 92.30 / 20.50 59.80/ 8.50 Mid CCA 82.00 / 14.50 48.30/ 8.50 Distal CCA 71.80 / 11.10 108.10/16.50 Prox ICA 69.00 / 13.10 109.20/11.00 Mid ICA 85.20 / 14.90 113.60/25.40 Distal ICA 86.60 / 20.20 112.50 ECA 95.30 1.16 ICA/CCA 0.94 Antegrade Vertebral Antegrade 31.60/ 6.60 cm/s 54.40/ 11.70 cm/s Tri Subclavian Tri 198.8 136.4 0 0 FINDINGS Comparison:. 11/05/20 No significant elevation of systolic or diastolic velocities. Diffuse, mild bilateral scattered calcified plaque and intimal thickening throughout the common carotid arteries and extending through the bifurcation. Antegrade vertebral arteries. Mild right subclavian artery stenosis. CONCLUSIONS Bilateral ICA stenosis less than 50%. Mild diffuse carotid artery atherosclerosis. Dr. Jaqueline Addison DO (Electronically Signed) Final Date: 22 January 2022 15:23 S
== END 2022-01-22 12:19 | disposition home or self-care (01) ==
PROVIDERS: PCP Nurse Practitioner; Visit Provider Nurse Practitioner Family
DX: I65.23 Occlusion and stenosis of bilateral carotid arteries (principal)
CPT/HCPCS: 93880

== ENCOUNTER → 2022-01-28 11:28 | Outpatient (BNVA) | payer MEDICARE, MEDICAID, SELFPAY | PROVIDERS: PCP Nurse Practitioner; Visit Provider Nurse Practitioner | DX: J43.9 Emphysema, unspecified (principal); I10 Essential (primary) hypertension; N95.2 Postmenopausal atrophic vaginitis; K21.9 Gastro-esophageal reflux disease without esophagitis; M50.30 Other cervical disc degeneration, unspecified cervical region; J30.1 Allergic rhinitis due to pollen; N39.46 Mixed incontinence; E78.2 Mixed hyperlipidemia; E03.9 Hypothyroidism, unspecified; E53.8 Deficiency of other specified B group vitamins; R73.9 Hyperglycemia, unspecified | CPT/HCPCS: 80053; 80061; 82607; 83036; 84443; 85025 ==

== ENCOUNTER → 2022-04-28 15:30 | Outpatient (BNVA) | payer MEDICARE, MEDICAID, SELFPAY | PROVIDERS: PCP Nurse Practitioner; Visit Provider Nurse Practitioner | DX: J43.9 Emphysema, unspecified (principal); I10 Essential (primary) hypertension; N95.2 Postmenopausal atrophic vaginitis; K21.9 Gastro-esophageal reflux disease without esophagitis; M50.30 Other cervical disc degeneration, unspecified cervical region; J30.1 Allergic rhinitis due to pollen; N39.46 Mixed incontinence; E78.2 Mixed hyperlipidemia; E03.9 Hypothyroidism, unspecified; E53.8 Deficiency of other specified B group vitamins; R73.9 Hyperglycemia, unspecified; Z23 Encounter for immunization; D72.828 Other elevated white blood cell count | CPT/HCPCS: 80053; 84443; 85025 ==

== ENCOUNTER → 2022-07-22 08:30 | Outpatient (BNVA) | payer MEDICARE, MEDICAID, SELFPAY | PROVIDERS: PCP Nurse Practitioner; Visit Provider Nurse Practitioner | DX: E03.9 Hypothyroidism, unspecified (principal); E78.2 Mixed hyperlipidemia; R73.9 Hyperglycemia, unspecified; I10 Essential (primary) hypertension | CPT/HCPCS: 80053; 80061; 83036; 84443; 85025 ==

== ENCOUNTER → 2022-07-29 15:00 | Outpatient (BNVA) | payer MEDICARE, MEDICAID, SELFPAY | PROVIDERS: PCP Nurse Practitioner; Visit Provider Internal Medicine Cardiovascular Disease | DX: I25.118 Atherosclerotic heart disease of native coronary artery with other forms of angina pectoris (principal); I70.219 Atherosclerosis of native arteries of extremities with intermittent claudication, unspecified extremity; E78.2 Mixed hyperlipidemia; I10 Essential (primary) hypertension; Z87.891 Personal history of nicotine dependence | CPT/HCPCS: 99214 ==

== ENCOUNTER → 2022-10-06 08:44 | Outpatient (BNVA) | payer MEDICARE, MEDICAID, SELFPAY | PROVIDERS: PCP Nurse Practitioner; Visit Provider Nurse Practitioner | DX: J43.9 Emphysema, unspecified (principal); I10 Essential (primary) hypertension; K21.9 Gastro-esophageal reflux disease without esophagitis; N39.46 Mixed incontinence; J30.1 Allergic rhinitis due to pollen; M50.30 Other cervical disc degeneration, unspecified cervical region; E78.2 Mixed hyperlipidemia; E03.9 Hypothyroidism, unspecified | CPT/HCPCS: 84443 ==

== ENCOUNTER → 2022-12-29 09:01 | Outpatient (BNVA) | payer MEDICARE, MEDICAID, SELFPAY | PROVIDERS: PCP Nurse Practitioner; Visit Provider Nurse Practitioner | DX: I10 Essential (primary) hypertension (principal); J43.9 Emphysema, unspecified; K21.9 Gastro-esophageal reflux disease without esophagitis; E03.9 Hypothyroidism, unspecified; M50.30 Other cervical disc degeneration, unspecified cervical region; J30.1 Allergic rhinitis due to pollen; N39.46 Mixed incontinence; E78.2 Mixed hyperlipidemia | CPT/HCPCS: 80053; 81000; 84443; 85025 ==

== ENCOUNTER → 2023-02-10 11:22 | Outpatient (BNVA) | payer MEDICARE, MEDICAID, SELFPAY | PROVIDERS: PCP Nurse Practitioner; Visit Provider Internal Medicine Cardiovascular Disease | DX: I25.118 Atherosclerotic heart disease of native coronary artery with other forms of angina pectoris (principal); E78.2 Mixed hyperlipidemia; E03.9 Hypothyroidism, unspecified; J43.9 Emphysema, unspecified; I70.219 Atherosclerosis of native arteries of extremities with intermittent claudication, unspecified extremity; I65.23 Occlusion and stenosis of bilateral carotid arteries; Z87.891 Personal history of nicotine dependence | CPT/HCPCS: 99214 ==

== ENCOUNTER → 2023-03-29 08:25 | Outpatient (BNVA) | payer MEDICARE, MEDICAID, SELFPAY | PROVIDERS: PCP Nurse Practitioner; Visit Provider Nurse Practitioner | DX: E03.9 Hypothyroidism, unspecified (principal); E55.9 Vitamin D deficiency, unspecified; I10 Essential (primary) hypertension; Z23 Encounter for immunization; J43.9 Emphysema, unspecified; K21.9 Gastro-esophageal reflux disease without esophagitis; M50.30 Other cervical disc degeneration, unspecified cervical region; J30.1 Allergic rhinitis due to pollen; N39.46 Mixed incontinence; E78.2 Mixed hyperlipidemia; F41.8 Other specified anxiety disorders | CPT/HCPCS: 80053; 80061; 82306; 84439; 84443; 84481; 85025 ==

== ENCOUNTER → 2023-05-06 16:13 | Outpatient (BNVA) | payer OTHER, MEDICAID, SELFPAY | PROVIDERS: PCP Nurse Practitioner; Visit Provider Nurse Practitioner | DX: E03.9 Hypothyroidism, unspecified (principal) | CPT/HCPCS: 84439; 84443; 84481 ==

== ENCOUNTER → 2023-06-28 08:19 | Outpatient (BNVA) | payer MEDICARE, MEDICAID, SELFPAY | PROVIDERS: PCP Nurse Practitioner; Visit Provider Nurse Practitioner | DX: E03.9 Hypothyroidism, unspecified (principal); E53.8 Deficiency of other specified B group vitamins; J43.9 Emphysema, unspecified; I10 Essential (primary) hypertension; K21.9 Gastro-esophageal reflux disease without esophagitis; M50.30 Other cervical disc degeneration, unspecified cervical region; J30.1 Allergic rhinitis due to pollen; N39.46 Mixed incontinence; E78.2 Mixed hyperlipidemia; F41.8 Other specified anxiety disorders; R79.89 Other specified abnormal findings of blood chemistry | CPT/HCPCS: 80053; 82607; 84439; 84443; 84481 ==

== ENCOUNTER → 2023-08-19 15:02 | Outpatient (BNVA) | payer MEDICARE, MEDICAID, SELFPAY | PROVIDERS: PCP Nurse Practitioner; Visit Provider Physician Assistant | DX: R05.9 Cough, unspecified (principal) | CPT/HCPCS: 87400; 87426 ==

== ENCOUNTER → 2023-08-23 11:20 | Outpatient (BNVA) | payer MEDICARE, MEDICAID, SELFPAY | PROVIDERS: PCP Nurse Practitioner; Visit Provider Nurse Practitioner | DX: J43.9 Emphysema, unspecified (principal); E55.9 Vitamin D deficiency, unspecified; E03.9 Hypothyroidism, unspecified; D72.828 Other elevated white blood cell count; I10 Essential (primary) hypertension; R79.89 Other specified abnormal findings of blood chemistry | CPT/HCPCS: 71046; 80053; 80061; 82306; 84439; 84443; 84481; 85025 ==

== ENCOUNTER → 2023-09-02 11:35 | Outpatient (BNVA) | payer MEDICARE, MEDICAID, SELFPAY | PROVIDERS: PCP Nurse Practitioner; Visit Provider Internal Medicine Cardiovascular Disease | DX: I70.219 Atherosclerosis of native arteries of extremities with intermittent claudication, unspecified extremity (principal); E78.2 Mixed hyperlipidemia; I65.23 Occlusion and stenosis of bilateral carotid arteries; I10 Essential (primary) hypertension; Z87.891 Personal history of nicotine dependence | CPT/HCPCS: 99214 ==

== ENCOUNTER → 2023-10-20 08:45 | Outpatient (BNVA) | payer MEDICARE, MEDICAID, SELFPAY | PROVIDERS: PCP Nurse Practitioner; Visit Provider Nurse Practitioner | DX: R79.89 Other specified abnormal findings of blood chemistry (principal); E03.9 Hypothyroidism, unspecified | CPT/HCPCS: 80053; 84439; 84443; 84481 ==

== ENCOUNTER → 2024-01-03 11:15 | Outpatient (BNVA) | payer MEDICARE, MEDICAID, SELFPAY | PROVIDERS: PCP Nurse Practitioner; Visit Provider Nurse Practitioner | DX: M85.812 Other specified disorders of bone density and structure, left shoulder (principal) | CPT/HCPCS: 73030 ==

== ENCOUNTER → 2024-01-06 08:36 | Outpatient (BNVA) | payer MEDICARE, MEDICAID, SELFPAY | PROVIDERS: PCP Nurse Practitioner; Visit Provider Nurse Practitioner | DX: I10 Essential (primary) hypertension (principal); E03.9 Hypothyroidism, unspecified; R79.89 Other specified abnormal findings of blood chemistry; F41.8 Other specified anxiety disorders | CPT/HCPCS: 80053; 80061; 82607; 84439; 84443; 84481; 85025 ==

== ENCOUNTER → 2024-02-29 10:36 | Outpatient (BNVA) | payer MEDICARE, MEDICAID, SELFPAY | PROVIDERS: PCP Nurse Practitioner; Visit Provider Nurse Practitioner Family | DX: I25.10 Atherosclerotic heart disease of native coronary artery without angina pectoris (principal); I10 Essential (primary) hypertension | CPT/HCPCS: 99214 ==

== ENCOUNTER → 2024-03-21 09:00 | Outpatient (BNVA) | payer MEDICARE, MEDICAID, SELFPAY | PROVIDERS: PCP Nurse Practitioner; Visit Provider Student in an Organized Health Care Education/Training Program | DX: M25.512 Pain in left shoulder (principal) | CPT/HCPCS: 99203 ==

== ENCOUNTER → 2024-03-27 11:05 | Outpatient (BNVA) | payer MEDICARE, MEDICAID, SELFPAY | PROVIDERS: PCP Nurse Practitioner; Visit Provider Nurse Practitioner | DX: M85.812 Other specified disorders of bone density and structure, left shoulder (principal); I70.219 Atherosclerosis of native arteries of extremities with intermittent claudication, unspecified extremity; G47.00 Insomnia, unspecified | CPT/HCPCS: 80053; 80061; 84443; 85025 ==

== ENCOUNTER 2024-05-29 14:34 | Outpatient (CLI) | payer MEDICARE, MEDICAID, SELFPAY ==
--- NOTE | 2024-05-29 15:00 | CT_ITS ---
WS: [id number] CT HEAD TECHNIQUE: Noncontrast CT of the head obtained from the skullbase to the vertex. CLINICAL INFORMATION: R26.9 - Unspecified abnormalities of gait and mobility COMPARISON: None. DLP: 1020.[address] scans at [facility] use at least one of these dose optimization techniques: automated e xposure control; mA and/or kV adjustment per patient size (includes targeted exams where dose is matc hed to clinical indication); or iterative reconstruction. FINDINGS: No evidence of intracranial hemorrhage or mass effect. Ventricular system and basal cisterns are saleh nt. Moderate small vessel changes with mild parenchymal volume loss. No extra-axial fluid collections . No evidence of mass or mass effect. Vascular calcification. Small chronic lacunar infarcts LEFT bas al ganglia. Paranasal sinuses and mastoid air cells are well aerated. .Normal visualized soft tissues. CT/CT head wo con* [id number] IMPRESSION: 1. No evidence of intracranial hemorrhage or mass effect. 2. Moderate small vessel changes. Mild parenchymal volume loss. 3. Vascular calcification. 4. 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 5. No other acute findings.
== END 2024-05-29 14:35 | disposition home or self-care (01) ==
LOC: RAD 14:36
PROVIDERS: PCP Nurse Practitioner; Visit Provider Nurse Practitioner
DX: R26.9 Unspecified abnormalities of gait and mobility (principal); R93.0 Abnormal findings on diagnostic imaging of skull and head, not elsewhere classified; I63.81 Other cerebral infarction due to occlusion or stenosis of small artery
CPT/HCPCS: 70450

== ENCOUNTER → 2024-06-20 11:02 | Outpatient (BNVA) | payer MEDICARE, MEDICAID, SELFPAY | PROVIDERS: PCP Nurse Practitioner; Visit Provider Nurse Practitioner | DX: I10 Essential (primary) hypertension (principal); E03.9 Hypothyroidism, unspecified; E53.8 Deficiency of other specified B group vitamins; E55.9 Vitamin D deficiency, unspecified; F41.8 Other specified anxiety disorders | CPT/HCPCS: 82306; 82607; 83735; 84443; 85025; 85651; 86140 ==

== ENCOUNTER → 2024-06-27 10:31 | Outpatient (BNVA) | payer MEDICARE, MEDICAID, SELFPAY | PROVIDERS: PCP Nurse Practitioner; Referring Provider Nurse Practitioner; Visit Provider Psychiatry & Neurology Neurology | DX: M50.30 Other cervical disc degeneration, unspecified cervical region (principal); M54.50 Low back pain, unspecified; R26.89 Other abnormalities of gait and mobility; R29.818 Other symptoms and signs involving the nervous system; M54.9 Dorsalgia, unspecified; R29.898 Other symptoms and signs involving the musculoskeletal system; W19.XXXA Unspecified fall, initial encounter; R25.1 Tremor, unspecified; R26.9 Unspecified abnormalities of gait and mobility | CPT/HCPCS: 99203 ==

== ENCOUNTER 2024-07-07 12:26 | Outpatient (CLI) | payer MEDICAID, MEDICARE, SELFPAY ==
--- NOTE | 2024-07-07 13:00 | MR_ITS ---
WS: [id number] MRI BRAIN WITH AND WITHOUT CONTRAST HISTORY: R26.89 - Other abnormalities of gait and mobility COMPARISON: CT 05/29/2024 TECHNIQUE: Multiplanar imaging performed through the brain with MultiHance 12 ml's IV. No acute infarcts are seen. Maldonado-white matter differentiation is well preserved. Moderate scattered T2 and FLAIR signal hyperintensities throughout the white matter. Greatest amount of white matter disease around the occipital horns, LEFT greater than RIGHT. No large infarct. Tiny lacunar infarcts in the RIGHT basal ganglia. Mild cerebral and cerebellar atrophy. Minimal hippocampal atrophy. Ventricles and extra-axial spaces are normal. Clivus and pituitary gland are normal. Postcontrast images are negative for masses or vascular malformations. Dural venous sinuses are normal. Paranasal sinuses: Well aerated with no significant disease. Mastoid air cells: Small amount of fluid in the mastoid air cells, LEFT greater than RIGHT. Calvarium and scalp: Normal. MR/MR head wo/w con [id number] IMPRESSION: 1. No acute infarct or hemorrhage. No enhancing mass. 2. Mild cerebral and cerebellar atrophy and mild hippocampal atrophy. 3. No abnormality in the posterior fossa. 4. Mild small vessel ischemic disease greatest surrounding the occipital horns of the lateral ventricles. 5. Mild bilateral mastoid air cell effusions.
[2024-07-07] MEDS: gadobenate dimeglumine 20 mL vial IV (13:31)
--- NOTE | 2024-07-07 14:45 | USCV_ITS ---
Venita Pittman Age: 88 Gender: F : 1935 Exam Date: 07/07/2024 13:45 Ordering Phys: Brent Stroud MD Technologist: USR Exam Location: [facility] – [place] Indication: stenosis Risk Factors: Previous Vascular Surgery: Right Brachial BP: / Left Brachial BP: / Right Left Velocity (cm/s) Spectral Plaque Velocity (cm/s) Spectral Plaque Syst/Diast Broadening Syst/Diast Broadening 106.50/6.30 Prox CCA 53.90 / 5.80 71.50/ 6.30 Mid CCA 65.40 / 7.90 52.60/ 6.00 Distal CCA 44.80 / 4.70 63.00/ 8.20 Prox ICA 61.40 / 9.20 89.80/ 10.20 Mid ICA 66.80 / 11.90 61.80/ 8.40 Distal ICA 68.60 / 13.10 60.60 ECA 89.50 1.20 ICA/CCA 1.40 Antegrade Vertebral Antegrade 28.70/ 4.30 cm/s 29.50/ 6.10 cm/s Tri Subclavian Tri 110.5 118.0 0 0 CONCLUSIONS Right ICA stenosis <50%. Moderate atheromatous plaque right carotid bulb/ICA. Left ICA stenosis <50%. Moderate atheromatous plaque left carotid bulb/ICA. Normal antegrade Doppler flow noted in the right vertebral artery. Normal antegrade Doppler flow noted in the left vertebral artery. Avtar Ayala MD (Electronically Signed) Final Date: 10 July 2024 10:04 S
== END 2024-07-07 12:27 | disposition home or self-care (01) ==
LOC: RAD 12:35
PROVIDERS: PCP Nurse Practitioner; Visit Provider Psychiatry & Neurology Neurology
DX: R26.89 Other abnormalities of gait and mobility (principal); I65.23 Occlusion and stenosis of bilateral carotid arteries; G31.89 Other specified degenerative diseases of nervous system; R93.0 Abnormal findings on diagnostic imaging of skull and head, not elsewhere classified; H74.8X1 Other specified disorders of right middle ear and mastoid
CPT/HCPCS: 70553; 93880

== ENCOUNTER 2024-07-10 10:51 | Outpatient (CLI) | payer MEDICAID, MEDICARE, SELFPAY ==
--- NOTE | 2024-07-10 11:00 | MR_ITS ---
WS: [id number] MRI LUMBAR SPINE WITH CONTRAST TECHNIQUE: Sagittal T1, T2 and STIR imaging. Axial T1 and T2 imaging. Post gadolinium imaging was obtained. CLINICAL INFORMATION: M50.30 - Other cervical disc degeneration, unspecified ce... COMPARISON: MRI 07/04/2016 FINDINGS: Counting performed from the craniocervical junction. L5 is transitional and partially sacralized. This differs from the prior numbering convention used in 2017. L1-L2: Normal. L2-L3: Slight retrolisthesis. Mild annular bulging. Narrowing of the subarticular recess bilaterally. Moderate LEFT foraminal narrowing with a LEFT foraminal protrusion. Moderate facet arthropathy. L3-L4: Slight retrolisthesis. Mild annular bulging. Mild central canal stenosis. Narrowing of the subarticular recess bilaterally progressed compared to previous. Mild bilateral foraminal narrowing. L4-L5: Mild annular bulging. Mild central canal stenosis with narrowing of the subarticular recess bilaterally. This appears progressed compared to previous. Moderate facet arthropathy. Moderate LEFT foraminal narrowing. RIGHT foramen is patent. L5-S1: L5 is partially sacralized. Mild annular bulging. Foramen are patent. Visualized pelvic bony structures: Normal. Paravertebral soft tissues: Normal. MR/MR lumbar spine wo/w con [id number] IMPRESSION: 1. Counting performed from the craniocervical junction. L5 is transitional an d partially sacralized. This differs from the prior numbering convention used i n 2017. 2. Progressed mild central canal stenosis with narrowing of the subarticular r ecess at L2-3. 3. Moderate LEFT L2-3 foraminal narrowing. 4. Mild central canal stenosis L3-L4 and L4-L5 with narrowing of the subarticu lar recess bilaterally appears progressed compared to previous. 5. Mild LEFT L3-4 and moderate LEFT L4-5 foraminal narrowing.
[2024-07-10] MEDS: gadobenate dimeglumine 20 mL vial IV (12:34)
== END 2024-07-10 10:52 | disposition home or self-care (01) ==
LOC: RAD 10:54
PROVIDERS: PCP Nurse Practitioner; Visit Provider Psychiatry & Neurology Neurology
DX: M48.061 Spinal stenosis, lumbar region without neurogenic claudication (principal); M50.30 Other cervical disc degeneration, unspecified cervical region; R93.7 Abnormal findings on diagnostic imaging of other parts of musculoskeletal system; M51.369 Other intervertebral disc degeneration, lumbar region without mention of lumbar back pain or lower extremity pain; M51.26 Other intervertebral disc displacement, lumbar region; M47.896 Other spondylosis, lumbar region; M43.27 Fusion of spine, lumbosacral region; M51.379 Other intervertebral disc degeneration, lumbosacral region without mention of lumbar back pain or lower extremity pain
CPT/HCPCS: 72158

== ENCOUNTER 2024-07-18 10:27 | Outpatient (CLI) | payer MEDICARE, MEDICAID, SELFPAY ==
[2024-07-18] MEDS: gadobenate dimeglumine 20 mL vial 11 ML IV (11:17)
--- NOTE | 2024-07-18 11:45 | MR_ITS ---
WS: [id number] MRI CERVICAL SPINE with and without contrast HISTORY: Bilateral arm and neck pain. COMPARISON: None available. Technique: Multiplanar, multisequence noncontrast imaging of the cervical spine. Postcontrast imaging MultiHance 11 mL. Straightening of the normal cervical lordosis. Disc spaces are narrowed and desiccated. Signal within the cervical cord is normal. Visualized posterior fossa is unremarkable. Craniocervical junction, C1 and C2 relationship, odontoid process and soft tissues are normal. C2-C3: Normal. C3-C4: Osteophytic ridging with annular disc bulging. Small disc osteophyte complexes in the foramina. Moderate bilateral foraminal stenosis and central stenosis. Fluid in the LEFT facet joint. C4-C5: Mild osteophytic ridging. Bilateral foraminal osteophytes. Advanced LEFT facet joint arthropathy and synovitis. Mild on the RIGHT. Mild central and mild to moderate bilateral foraminal stenosis. C5-C6: Marked osteophytic ridging with disc bulging and a central disc protrusion. Bilateral moderate facet joint arthritis. Foraminal osteophytes. Severe central and foraminal stenosis and mild facet arthritis. C6-C7: Mild annular disc bulging with a central disc osteophyte. Moderate central with severe bilateral foraminal stenosis predominantly due to osteophytes. C7-T1: No stenosis. Paravertebral soft tissues are normal. No discitis or osteomyelitis. No enhancing masses. MR/MR cervical spine wo/w [id number] IMPRESSION: 1. Multilevel areas of central and foraminal stenosis. Stenosis due to combina tion of disc disease osteophytosis and facet arthritis. 2. C3-4: Mild central with moderate bilateral foraminal stenosis due to disc o steophyte disease. LEFT facet joint effusion. 3. C4-5: Mild central with mild to moderate bilateral foraminal stenosis. Sadie re LEFT facet joint arthropathy and synovitis. 4. C5-6: Severe central and bilateral foraminal stenosis. 5. C6-7: Moderate central with severe bilateral foraminal stenosis. 6. No enhancing masses.
== END 2024-07-18 10:28 | disposition home or self-care (01) ==
PROVIDERS: PCP Nurse Practitioner; Visit Provider Psychiatry & Neurology Neurology
DX: M50.31 Other cervical disc degeneration, high cervical region (principal); M54.50 Low back pain, unspecified; M48.02 Spinal stenosis, cervical region; M25.78 Osteophyte, vertebrae; M47.892 Other spondylosis, cervical region; M65.88 Other synovitis and tenosynovitis, other site; M50.322 Other cervical disc degeneration at C5-C6 level; M50.222 Other cervical disc displacement at C5-C6 level; M50.323 Other cervical disc degeneration at C6-C7 level
CPT/HCPCS: 72156

== ENCOUNTER → 2024-08-01 10:13 | Outpatient (BNVA) | payer MEDICARE, MEDICAID, SELFPAY | PROVIDERS: PCP Nurse Practitioner; Referring Provider Psychiatry & Neurology Neurology; Visit Provider Orthopaedic Surgery | DX: M54.2 Cervicalgia (principal) | CPT/HCPCS: 72050; 99203 ==

== ENCOUNTER → 2024-10-04 09:04 | Outpatient (BNVA) | payer MEDICARE, MEDICAID, SELFPAY | PROVIDERS: PCP Nurse Practitioner; Visit Provider Nurse Practitioner | DX: I70.219 Atherosclerosis of native arteries of extremities with intermittent claudication, unspecified extremity (principal); E53.8 Deficiency of other specified B group vitamins; E03.9 Hypothyroidism, unspecified; E78.2 Mixed hyperlipidemia; G47.00 Insomnia, unspecified | CPT/HCPCS: 80053; 80061; 82607; 84443; 85025 ==

== ENCOUNTER → 2024-10-09 13:57 | Outpatient (BNVA) | payer MEDICARE, MEDICAID, SELFPAY | PROVIDERS: PCP Nurse Practitioner; Visit Provider Internal Medicine Cardiovascular Disease | DX: I70.219 Atherosclerosis of native arteries of extremities with intermittent claudication, unspecified extremity (principal); I65.23 Occlusion and stenosis of bilateral carotid arteries; E78.2 Mixed hyperlipidemia; I10 Essential (primary) hypertension; Z79.82 Long term (current) use of aspirin; Z87.891 Personal history of nicotine dependence | CPT/HCPCS: 84439; 84481; 99214 ==

== ENCOUNTER → 2024-10-25 13:16 | Outpatient (BNVA) | payer MEDICARE, MEDICAID, SELFPAY | PROVIDERS: PCP Nurse Practitioner; Visit Provider Psychiatry & Neurology Neurology | DX: G20.C Parkinsonism, unspecified (principal); R29.818 Other symptoms and signs involving the nervous system; M54.2 Cervicalgia; M54.9 Dorsalgia, unspecified; R29.898 Other symptoms and signs involving the musculoskeletal system; W19.XXXA Unspecified fall, initial encounter; R26.9 Unspecified abnormalities of gait and mobility | CPT/HCPCS: 99212 ==

== ENCOUNTER → 2024-12-25 08:44 | Outpatient (BNVA) | payer MEDICARE, MEDICAID, SELFPAY | PROVIDERS: PCP Nurse Practitioner; Visit Provider Nurse Practitioner | DX: E03.9 Hypothyroidism, unspecified (principal); R79.89 Other specified abnormal findings of blood chemistry | CPT/HCPCS: 84439; 84481 ==

== ENCOUNTER → 2025-01-02 15:25 | Outpatient (BNVA) | payer MEDICARE, MEDICAID, SELFPAY | PROVIDERS: PCP Nurse Practitioner; Visit Provider Psychiatry & Neurology Neurology | DX: G20.A1 Parkinson's disease without dyskinesia, without mention of fluctuations (principal); R29.818 Other symptoms and signs involving the nervous system; M54.2 Cervicalgia; M54.9 Dorsalgia, unspecified; R29.898 Other symptoms and signs involving the musculoskeletal system; W19.XXXA Unspecified fall, initial encounter; R26.9 Unspecified abnormalities of gait and mobility | CPT/HCPCS: 99212 ==

== ENCOUNTER 2025-01-10 12:41 | Outpatient (CLI) | payer MEDICARE, MEDICAID, SELFPAY ==
--- NOTE | 2025-01-10 15:30 | MR_ITS ---
WS: [id number] MRA HEAD TECHNIQUE: Axial 3-D TOF images obtained with axial images and axial, sagittal, and coronal 2-D reformatted images. CLINICAL INFORMATION: I72.9 - Aneurysm of unspecified site COMPARISON: None. FINDINGS: LEFT dominant vertebral artery. Tiny but patent distal RIGHT vertebral artery. Basilar artery is patent. Normal vascularity to the DOBBY LOOMS PEGGER territory bilaterally. Patent RIGHT posterior communicating artery. Both ICAs are patent at the skull base. Tortuous cavernous carotid arteries. Normal vascularity to the TITI and MCA territories bilaterally. No evidence of proximal flow-limiting stenosis. 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 MR/MR angio head wo con [id number] IMPRESSION: 1. 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 2. No other suspicious findings.
== END 2025-01-10 12:42 | disposition home or self-care (01) ==
LOC: RAD 12:42
PROVIDERS: PCP Nurse Practitioner; Visit Provider Psychiatry & Neurology Neurology
DX: I72.0 Aneurysm of carotid artery (principal)
CPT/HCPCS: 70544

== ENCOUNTER → 2025-03-19 08:40 | Outpatient (BNVA) | payer MEDICARE, MEDICAID, SELFPAY | PROVIDERS: PCP Nurse Practitioner; Visit Provider Nurse Practitioner | DX: G47.00 Insomnia, unspecified (principal); F41.8 Other specified anxiety disorders; I10 Essential (primary) hypertension; I70.219 Atherosclerosis of native arteries of extremities with intermittent claudication, unspecified extremity | CPT/HCPCS: 80053; 80061; 84443; 85025 ==

== ENCOUNTER → 2025-03-22 09:54 | Outpatient (BNVA) | payer MEDICARE, MEDICAID, SELFPAY | PROVIDERS: PCP Nurse Practitioner; Visit Provider Nurse Practitioner | DX: E03.9 Hypothyroidism, unspecified (principal); G47.00 Insomnia, unspecified | CPT/HCPCS: 84439; 84481 ==

== ENCOUNTER → 2025-04-03 14:54 | Outpatient (BNVA) | payer MEDICARE, MEDICAID, SELFPAY | PROVIDERS: PCP Nurse Practitioner; Visit Provider Specialist | DX: G20.A1 Parkinson's disease without dyskinesia, without mention of fluctuations (principal) | CPT/HCPCS: 99215 ==

== ENCOUNTER → 2025-04-25 09:51 | Outpatient (BNVA) | payer MEDICARE, MEDICAID, SELFPAY | PROVIDERS: PCP Nurse Practitioner; Visit Provider Nurse Practitioner Family | DX: I70.219 Atherosclerosis of native arteries of extremities with intermittent claudication, unspecified extremity (principal); E78.2 Mixed hyperlipidemia; I25.118 Atherosclerotic heart disease of native coronary artery with other forms of angina pectoris; I65.29 Occlusion and stenosis of unspecified carotid artery; I10 Essential (primary) hypertension; J43.9 Emphysema, unspecified; Z87.891 Personal history of nicotine dependence | CPT/HCPCS: 99214 ==